=== PATIENT | female | born 1965 | race Two or more races ===

== ENCOUNTER 2020-10-28 14:33 | Outpatient (CLI) | payer OTHER, SELFPAY | END 2020-10-28 14:34 | disposition home or self-care (01) | LOC: ANHCOVIDVC 14:33 | PROVIDERS: PCP Emergency Medicine | DX: Z23 Encounter for immunization (principal) | CPT/HCPCS: 0001A; 91300 ==

== ENCOUNTER 2020-11-18 14:43 | Outpatient (CLI) | payer OTHER, SELFPAY | END 2020-11-18 14:44 | disposition home or self-care (01) | LOC: ANHCOVIDVC 14:43 | PROVIDERS: PCP Emergency Medicine | DX: Z23 Encounter for immunization (principal) | CPT/HCPCS: 0002A; 91300 ==

== ENCOUNTER 2021-03-25 16:01 | Emergency (ER) | payer OTHER, SELFPAY ==
[2021-03-25 16:15] VITALS: BP 151/76; PULSE 75; RESP 16; TEMP 36.6; O2SAT 100
--- NOTE | 2021-03-25 16:47 | ED.FEMALEGU ---
HPI - Female Genitourinary General Chief complaint: Urogenital-Female Stated complaint: UTI Time Seen by Provider: 03/25/21 16:27 Source: patient and RN notes reviewed Mode of arrival: ambulatory Limitations: no limitations History of Present Illness HPI Narrative: Patient presents today complaint of a 2 to 3-day history of urinary symptoms to include frequency, dysuria, lower abdominal cramping radiating to the right lower back, urinating small amounts, headache. Patient has been taking Azo with little relief. MD elicited complaint: dysuria Related Data Home Medications Medication Instructions Recorded Confirmed ergocalciferol (vitamin D2) 50,000 unit PO DAILY 07/12/19 07/12/19 [Vitamin D2] Allergies Allergy/AdvReac Type Severity Reaction Status Date / Time sulfamethoxazole Allergy Severe Swelling Verified 07/12/19 11:58 trimethoprim Allergy Severe Swelling Verified 07/12/19 11:58 ciprofloxacin Allergy Intermediate Swelling Verified 07/12/19 11:58 levofloxacin Allergy Mild unknown Verified 07/12/19 11:58 nitrofurantoin Allergy Unknown LIGHT Verified 07/12/19 11:58 HEADED Review of Systems Review of Systems: CONSTITUTIONAL: Denies body aches, fever, chills, or sweats. EYES: Denies visual changes, redness, or discharge. ENT: Denies rhinorrhea, congestion, sore throat, or otalgia. CARDIOVASCULAR: Denies chest pain, palpitations, or edema. RESPIRATORY: Denies cough or dyspnea. GASTROINTESTINAL: Denies abdominal pain, nausea, vomiting, or diarrhea. GENITOURINARY: + Dysuria, lower abdominal cramping, voiding small amounts SKIN: Denies rash, itching, or wounds. MUSCULOSKELETAL: Denies back pain, joint pain, or myalgia. NEUROLOGIC: Denies numbness, tingling, or weakness.+ Headache PSYCH: Denies depression or anxiety. [facility] Past Medical History Medical History Ankle fracture Interstitial cystitis Urinary tract infection Surgical History Surgical History History of tonsillectomy Comments At time of signature, I have reviewed and agree with nursing past medical, surgical, social and family history unless otherwise noted. Please see nursing chart for further information. There is no relevant family history pertinent to the presenting complaint Exam Narrative: GENERAL: Well-appearing, well-nourished, and in no acute distress. HEAD: Normocephalic, atraumatic. EYES: EOMI. No redness or drainage. Conjunctivae normal. ENT: Mucous membranes pink and moist. NECK: Normal AROM. Supple. No lymphadenopathy. CHEST: No respiratory distress. Clear to auscultation. HEART: Regular rate and rhythm. No murmur appreciated. Normal peripheral pulses. ABDOMEN: Soft, nondistended, normal active bowel sounds.+ Suprapubic tenderness, mild right CVAT MUSCULOSKELETAL: No bony tenderness. EXTREMITIES: Normal range of motion. No edema. SKIN: Warm, dry, no rash. Capillary refill normal. Normal skin turgor. NEURO: No focal deficits. Alert and oriented x3. Gait steady. PSYCH: Normal affect. No signs of depression or anxiety. Course Vital Signs Vital signs: Vital Signs Temperature 97.8 F 03/25/21 16:15 Pulse Rate 75 03/25/21 16:15 Respiratory Rate 16 03/25/21 16:15 Blood Pressure 151/76 H 03/25/21 16:15 Pulse Oximetry 100 03/25/21 16:15 Temperature 97.8 F 03/25/21 16:15 Pulse Rate 75 03/25/21 16:15 Respiratory Rate 16 03/25/21 16:15 Blood Pressure 151/76 H 03/25/21 16:15 Pulse Oximetry 100 03/25/21 16:15 Reviewed. Pt has been instructed to follow up with her PCP regarding her elevated blood pressure today. MDM - Female Genitourinary Differential Diagnosis Differential diagnosis: Likely urinary tract infection, cystitis and other (Pyelonephritis, interstitial cystitis) Lab Data Attestation: I reviewed the patient's lab results. Labs: Urine Glucose
== END 2021-03-25 16:57 | disposition home or self-care (01) ==
PROVIDERS: Emergency Provider Nurse Practitioner; PCP Emergency Medicine
DX: N30.01 Acute cystitis with hematuria (principal)
CPT/HCPCS: 81003; 87086; 87088; 99213; G0463

== ENCOUNTER 2021-04-22 10:47 | Outpatient (CLI) | payer OTHER, SELFPAY ==
--- NOTE | ~2021-04-22 | US_ITS ---
EXAMINATION: US retroperitoneal comp DATE: 04/22/2021 11:23 INDICATION: Urinary tract infection without hematuria EXAMINATION: US retroperitoneal comp TECHNIQUE: Multiple ultrasound grayscale images of the kidneys were obtained. COMPARISON: 08/30/2016 FINDINGS: The right kidney measures 10.7 x 4.9 x 4.3 cm. The left kidney measures 10.1 x 4.7 x 4.9 cm. The kidn eys demonstrate normal echogenicity. 3.3 cm anechoic left renal cyst. There is no hydronephrosis in e ither kidney. No stones identified. Diffuse bladder wall thickening. Bilateral ureteral jets are see n on color Doppler. IMPRESSION: 1. 3.3 cm left renal cyst. Otherwise normal kidneys without hydronephrosis. 2. Diffuse bladder wall thickening which may be exaggerated by incomplete distention. Differential in cludes neurogenic bladder, chronic outlet obstruction or cystitis either acute or chronic. Reviewed, dictated and finalized at location A. IMPRESSION: 1. 3.3 cm left renal cyst. Otherwise normal kidneys without hydronephrosis. 2. Diffuse bladder wall thickening which may be exaggerated by incomplete diste ntion. Differential includes neurogenic bladder, chronic outlet obstruction or cystitis either acute or chronic.
[2021-04-22 12:30] LABS: Alanine Aminotransferase 22 U/L (4-35); Albumin Level 4.5 g/dL (3.5-5.1); Alkaline Phosphatase 61 U/L (38-126); Anion Gap 11 mmol/L (8-16); Aspartate Amino Transferase 30 U/L (14-36); Bilirubin,Total 0.4 mg/dL (0.2-1.3); Blood Urea Nitrogen 16 mg/dL (7-17); Calcium 8.9 mg/dL (8.4-10.2); Carbon Dioxide 25 mmol/L (22-30); Chloride 100 mmol/L (98-107); Estimated Glomerular Filt Rate > 60; Glucose 71 mg/dL (65-110); Potassium 4.6 mmol/L (3.4-5.0); Sodium 136 mmol/L (137-145)
== END 2021-04-22 10:48 | disposition home or self-care (01) ==
PROVIDERS: PCP Emergency Medicine
DX: R39.198 Other difficulties with micturition (principal); N28.1 Cyst of kidney, acquired
CPT/HCPCS: 36415; 76770; 80053

== ENCOUNTER 2021-07-07 15:00 | Outpatient (RCR) | payer OTHER, SELFPAY ==
--- NOTE | 2021-05-19 17:03 | PTOPEVAL ---
INITIAL PHYSICAL THERAPY EVALUATION and PLAN OF CARE Thank you for referring DS Lilo Virk to [facility] [place].? Lilo is scheduled to be seen for physical therapy? 1x/week for 6 weeks. Please review, sign, date and return this plan of care CLEMENTE. I agree with and certify that the following plan of care is medically necessary. Referring Physician Date Admitting Provider: Attending Provider: Sigifredo Caro MD Referring Provider: *PT Outpatient Evaluation Start: 05/19/21 15:17 Freq: Status: Active Protocol: Document 05/19/21 15:17 ADAM (Rec: 05/19/21 17:03 ADAM [id number]) Therapy Assessment Status Assessment Status Assessment Status Evaluation Outpatient Past Medical History Past Medical History Source of Past Medical History Recalled from Previous Visit, Confirmed with Patient/Family Gastrointestinal History Hx Other Gastrointestinal Disorders Yes: was neg for Hepatitis C - medication resulted in urinary side effects Genitourinary History Hx Other Genitourinary Disorders Yes: cystitis HEENT History Hx Tonsillectomy Yes: at age 6-7 yrs old Evaluation Information Problem Diagnosis pelvic and perineal pain Onset 2007,2008 Subjective Information Lilo reports that she had Query Text:As Reported By Patient/ several episodes with UTI Family symptoms, urine concentration, episodes of decreased liquids - had some burning sensation and pain in lower abdominal region. Was treated x 6 wks for Hepatitis C (negative for Heptatis 2007)- injections - resulted in urinary issues - decreased output - increased concentration - increase in burning sensation. Still undergoing testing - to have cystocopy - hasn't been able to have due to COVID situation in hospitals. Did take Azelo OTC - severe side effects - increased urine concentration and constipation. Stopped taking it. In meantime saw OB /CREDIT REFERENCE CLERK - during exam MD found increase in tightness with pelvic floor muscles - wanted her to have PT for the tightness as well as strengthening. Diagnosti
--- NOTE | 2021-05-28 14:52 | PCPTNOTE ---
Pt no show no call for today's appt. called pt to remind her of next appt. left a voice mail.
--- NOTE | 2021-06-09 14:48 | PCPTNOTE ---
Patient did not show up for scheduled appointment this date. Contacted pt . Pt stated she was unable to come due o taking care of her mother who was in the hospital. Pt wanted to cancel next appt also and may be able to make the final one if her mother is doing better.
--- NOTE | 2021-06-23 11:09 | PCPTNOTE ---
Patient called & cancelled scheduled appointment this date due to needing to care for her mom.
--- NOTE | 2021-06-30 12:00 | PCPTNOTE ---
Patient called & cancelled scheduled appointment this date due to mother's illness. R/S re-eval.
--- NOTE | 2021-07-07 15:33 | PCPTNOTE ---
Pt did not show for re-eval. She has not attended any appointments since evaluation. Will d/c from PT.
--- NOTE | 2021-07-07 15:33 | PCPTNOTE ---
PHYSICAL THERAPY DISCHARGE SUMMARY Admitting Provider: Attending Provider: Sigifredo Caro MD Patient:BRANDT Virk Date of :1965 Lilo has not returned for any further treatments since 05/19/2021, therefore she will be discharged at this time. Patient?s initial visit was on 05/19/2021 14:30 and she has not returned to PT since her initial visit. The goals have not been met. Thank you for referring Lilo to [facility]. Please review, sign, date and return this discharge summary CLEMENTE. I have been updated about Lilo's current status and I agree with discharge from the above service at this time. Referring Physician Date
== END 2021-07-08 11:17 | disposition home or self-care (01) ==
LOC: ANHPT 15:00
PROVIDERS: PCP Emergency Medicine; Visit Provider Obstetrics & Gynecology
DX: R10.2 Pelvic and perineal pain (principal)
CPT/HCPCS: 97110; 97162